=== PATIENT | female | born 1980 | race American Indian/Alaskan Native ===

== ENCOUNTER 2022-06-01 01:49 | Emergency (ER) | payer MEDICAID ==
[2022-06-01 02:29] VITALS: BP 131/88
--- NOTE | 2022-06-01 06:52 | Emergency Department Report ---
ED ENT HPI - General Chief complaint: Earache Stated complaint: SOMETHING IN THE EAR Time Seen by Provider: 06/01/22 06:25 Source: patient Mode of arrival: Ambulatory Limitations: No Limitations - History of Present Illness Initial comments: For 1 female [place] emerged department complaining of pain to left ear after trying to remove a foreign body or insect that she felt was moving her ear. She reports a dull throbbing/burning pain since doing so no presyncope, no bleeding or discharge from the MD complaint: ear pain -: Sudden Location: L ear Severity: mild, moderate Quality: burning, aching Consistency: constant Improves with: none Worsens with: none Associated Symptoms: denies: discharge from ear - Related Data Home Medications Medication Instructions Recorded Confirmed Last Taken Buprenorphine [Butrans] 1 each TD QWEEK 07/12/14 07/12/14 07/09/14 Citalopram Hydrobromide [Celexa] 40 mg PO DAILY 07/12/14 07/12/14 07/11/14 Topiramate [Topamax TAB] 50 mg PO BID 07/12/14 07/12/14 07/11/14 traMADoL [Ultram] 50 mg PO TID PRN 07/12/14 07/12/14 07/11/14 Previous Rx's Medication Instructions Recorded Last Taken Type Albuterol Mdi (or & Nicu Only) 2 puff IH QID PRN #1 inhalation 02/27/15 Unknown Rx [ProAir HFA Inhaler] Prednisone [Prednisone 10 mg 10 mg PO .TAPER #1 tab.ds.pk 02/27/15 Unknown Rx (6-Day Pack, 21 Tabs)] levoFLOXacin [Levaquin] 750 mg PO QDAY #10 tablet 02/27/15 Unknown Rx traMADoL [Ultram] 50 mg PO Q6HR PRN #14 tablet 02/27/15 Unknown Rx Neomy/Polymyx B/Hc (Otic) Soln 4 drops TID #1 bottle 06/01/22 Unknown Rx [Cortisporin (Otic) Soln] Allergies Allergy/AdvReac Type Severity Reaction Status Date / Time Penicillins Allergy Anaphylaxis Verified 07/11/14 17:16 [id number] Antimigraine AdvReac heart Verified 07/11/14 17:16 Agents arrhythmias ED Dental HPI - General Chief complaint: Earache Stated complaint: SOMETHING IN THE EAR Time Seen by Provider: 06/01/22 06:25 Source: patient Mode of arrival: Ambulatory Limitations: No Limitations - Related Data Home Medications Medication Instructions Recorded Confirmed Last Taken Buprenorphine [Butrans] 1 each TD QWEEK 07/12/14 07/12/14 07/09/14 Citalopram Hydrobromide [Celexa] 40 mg PO DAILY 07/12/14 07/12/14 07/11/14 Topiramate [Topamax TAB] 50 mg PO BID 07/12/14 07/12/14 07/11/14 traMADoL [Ultram] 50 mg PO TID PRN 07/12/14 07/12/14 07/11/14 Previous Rx's Medication Instructions Recorded Last Taken Type Albuterol Mdi (or & Nicu Only) 2 puff IH QID PRN #1 inhalation 02/27/15 Unknown Rx [ProAir HFA Inhaler] Prednisone [Prednisone 10 mg 10 mg PO .TAPER #1 tab.ds.pk 02/27/15 Unknown Rx (6-Day Pack, 21 Tabs)] levoFLOXacin [Levaquin] 750 mg PO QDAY #10 tablet 02/27/15 Unknown Rx traMADoL [Ultram] 50 mg PO Q6HR PRN #14 tablet 02/27/15 Unknown Rx Neomy/Polymyx B/Hc (Otic) Soln 4 drops TID #1 bottle 06/01/22 Unknown Rx [Cortisporin (Otic) Soln] Allergies Allergy/AdvReac Type Severity Reaction Status Date / Time Penicillins Allergy Anaphylaxis Verified 07/11/14 17:16 [id number] Antimigraine AdvReac heart Verified 07/11/14 17:16 Agents arrhythmias ED Review of Systems ROS: Stated complaint: SOMETHING IN THE EAR Other details as noted in HPI Comment: All other systems reviewed and negative ED Past Medical Hx - Past Medical History Hx CVA: Yes (TIA and CVA) Additional medical history: 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 hysterectomy. D & C. thymus mass removed - Social History Smoking Status: Never Smoker Substance Use Type: None - Medications Home Medications: Home Medications Medication Instructions Recorded Confirmed Last Taken Type Buprenorphine [Butrans] 1 each TD QWEEK 07/12/14 07/12/14 07/09/14 History Citalopram Hydrobromide [Celexa] 40 mg PO DAILY 07/12/14 07/12/14 07/11/14 History Topiramate [Topamax TAB] 50 mg PO BID 07/12/14 07/12/14 07/11/14 History traMADoL [Ultram] 50 mg PO TID PRN 07/12/14 07/12/14 07/11/14 History Albuterol Mdi (or & Nicu Only) 2 puff IH QID PRN #1 inhalation 02/27/15 Unknown Rx [ProAir HFA Inhaler] Prednisone [Prednisone 10 mg 10 mg PO .TAPER #1 tab.ds.pk 02/27/15 Unknown Rx (6-Day Pack, 21 Tabs)] levoFLOXacin [Levaquin] 750 mg PO QDAY #10 tablet 02/27/15 Unknown Rx traMADoL [Ultram] 50 mg PO Q6HR PRN #14 tablet 02/27/15 Unknown Rx Neomy/Polymyx B/Hc (Otic) Soln 4 drops TID #1 bottle 06/01/22 Unknown Rx [Cortisporin (Otic) Soln] ED Physical Exam - General Limitations: No Limitations General appearance: alert, in no apparent distress - Head Head exam: Present: atraumatic, normocephalic - Eye Eye exam: Present: normal appearance - ENT ENT exam: Present: mucous membranes moist, other (Abrasions to the left ear canal. Normal tympanic membrane no punctures. No foreign body was appreciated no mastoid tenderness no preauricular postauricular lymphadenopathy) - Neck Neck exam: Present: normal inspection - Respiratory Respiratory exam: Present: normal lung sounds bilaterally. Absent: respiratory distress - Cardiovascular Cardiovascular Exam: Present: regular rate, normal rhythm. Absent: systolic murmur, diastolic murmur, rubs, gallop - GI/Abdominal GI/Abdominal exam: Present: soft, normal bowel sounds - Extremities Exam Extremities exam: Present: normal inspection - Back Exam Back exam: Present: normal inspection - Neurological Exam Neurological exam: Present: alert, oriented X3 - Psychiatric Psychiatric exam: Present: normal affect, normal mood - Skin Skin exam: Present: warm, dry, intact, normal color. Absent: rash ED Course Vital Signs 06/01/22 02:24 Temperature 98.5 F Pulse Rate 82 Respiratory 15 Rate Blood Pressure 131/88 [Right] O2 Sat by Pulse 98 Oximetry Critical care attestation.: If time is entered above; I have spent that time in minutes in the direct care of this critically ill patient, excluding procedure time. ED Disposition Clinical Impression: Ear canal abrasion Disposition: HOME / SELF CARE / HOMELESS Is pt being admited?: No Does the pt Need Aspirin: No Condition: Stable Instructions: Abrasion Prescriptions: Neomy/Polymyx B/Hc (Otic) Soln [Cortisporin (Otic) Soln] 4 drops TID #1 bottle Referrals: [facility] [Provider Group] - 3-5 Days
== END 2022-06-01 07:10 | disposition home or self-care (01) ==
LOC: ED 01:49
DX: S00.412A Abrasion of left ear, initial encounter (principal); Z88.0 Allergy status to penicillin; Z91.09 Other allergy status, other than to drugs and biological substances; Z86.73 Personal history of transient ischemic attack (TIA), and cerebral infarction without residual deficits; X58.XXXA Exposure to other specified factors, initial encounter; Y93.89 Activity, other specified; Y92.89 Other specified places as the place of occurrence of the external cause; Y99.8 Other external cause status
CPT/HCPCS: 99282